=== PATIENT | male | born 1950 ===

== ENCOUNTER → 2016-12-10 | Outpatient (CLI) | payer MEDICARE, OTHER ==
[~2016-12-10] VITALS: Ht 162.6 cm; Wt 68.0 kg
[~2016-12-10] MED LIST: CARV25 PO; FURO40 PO; IBUP-2070 PO; KDUR10 PO; LOSA50TA37 PO; OMEP20 PO; SIMV-261 PO; SPIR25 PO
[2016-12-10 08:59] VITALS: BP 128/71
== END | disposition home or self-care (01) ==
LOC: SRCNTR 08:48
PROVIDERS: ATTEND Internal Medicine Clinical Cardiac Electrophysiology
DX: Z45.02 Encounter for adjustment and management of automatic implantable cardiac defibrillator (principal); I11.0 Hypertensive heart disease with heart failure; I50.9 Heart failure, unspecified; E78.5 Hyperlipidemia, unspecified; I25.10 Atherosclerotic heart disease of native coronary artery without angina pectoris
CPT/HCPCS: G0463